=== PATIENT | male | born 1930 | race Two or more races ===

== ENCOUNTER 2018-09-03 15:48 | Inpatient (IN) | payer MEDICARE, MEDICAID ==
[~2018-09-03] VITALS: Ht 167.6 cm; Wt 68.5 kg
--- NOTE | 2018-09-03 18:08 | NUR ---
ms rn received a new admission from [facility], 87 year old male, awake,alert,oriented x4,not in any form of distress, respirations even and unlabored,no sob, denies pain at this time, all needs attended.
--- NOTE | 2018-09-03 18:09 | NUR ---
ms rn texted dr. espinal for orders.
[2018-09-03] MEDS ORDERED: ACETAMINOPHEN 325 MG TABLET PO PRN (18:30)
[2018-09-03] MEDS ORDERED: HYDROCODONE/APAP 5/325MG 1 EACH TABLET PO PRN (18:30)
[2018-09-03] MEDS ORDERED: MAGNESIUM HYDROXIDE 30 ML UDC PO PRN (18:30)
[2018-09-03] MEDS ORDERED: ZOLPIDEM TARTRATE 5 MG TABLET PO PRN (18:30)
[2018-09-03] MEDS ORDERED: ONDANSETRON HCL/PF 4 MG/2 ML VIAL IVP PRN (18:30)
[2018-09-03] MEDS ORDERED: Z GUARD REMEDY 2 OZ OINT TP PRN (18:30)
[2018-09-03] MEDS ORDERED: MAG HYDROX/AL HYDROX/SIMETH 30 ML UDC PO PRN (18:30)
--- NOTE | 2018-09-03 19:30 | NUR ---
RECEIVED PATIENT IN BED AWAKE. AO X 3, ABLE TO MAKE NEEDS KNOWN. NO ACUTE DISTRESS NOTED. DENIES ANY PAIN AT THIS TIME. IV SITE PATENT, INTACT; FLUSHED. SAFETY REMINDERS GIVEN. ON LOW BED WITH BILATERAL UPPER SIDE RAILS UP. CALL ENGLE WITHIN EASY REACH. WILL CONTINUE TO MONITOR. SISTER AT BEDSIDE.
[2018-09-03 20:00] VITALS: BP 138/55
[2018-09-04] VITALS: BP 120/57
[2018-09-04 04:00] VITALS: BP 135/65
--- NOTE | 2018-09-04 06:30 | NUR ---
PATIENT ASLEEP, EASILY AROUSABLE. RESPIRATIONS EVEN. NO SIGNS OF PAIN NOTED. NEEDS ATTENDED. SAFETY PRECAUTIONS AND COMFORT MEASURES IN PLACE. WILL GIVE REPORT TO DAY SHIFT FOR CONTINUITY OF CARE.
--- NOTE | 2018-09-04 07:16 | NUR ---
RN OPENING NOTES RECEIVED PATIENT IN BED AWAKE AO X 4. NO SIGNS OF RESPIRATORY DISTRESS. DENIES SHORTNESS OF BREATH. DENIES ANY PAIN AT THIS TIME. IV SITE PATENT AND INTACT. SAFETY PRECAUTIONS IMPLEMENTED: BED LOW, BED LOCKED, SIDERAILS UP X2, CALL LIGHT WITHIN REACH. WILL CONTINUE TO MONITOR.
[2018-09-04 08:00] VITALS: BP 160/67
[2018-09-04 08:07] LABS: BASOPHILS % (AUTO) 0.5 % (0.0-2.0); EOSINOPHILS % (AUTO) 3.5 % (0.0-6.0); HEMATOCRIT 38 % (39-51); HEMOGLOBIN 12.8 g/dL (13.5-17.5); LYMPHOCYTES # (AUTO) 1.1 /CMM (0.8-4.8); LYMPHOCYTES % (AUTO) 22.5 % (20.0-44.0); MEAN CORPUSCULAR HGB CONC 34 g/dl (31.0-36.0); MEAN CORPUSCULAR VOLUME 94 fL (80-96); MONOCYTES # (AUTO) 0.5 /CMM (0.1-1.30); MONOCYTES % (AUTO) 10.4 % (2.0-12.0); NEUTROPHILS # (AUTO) 3.1 /CMM (1.8-8.9); NEUTROPHILS % (AUTO) 63.1 % (43.0-81.0); PLATELET COUNT (AUTO) 268 /CMM (150-450); WHITE BLOOD COUNT (AUTO) 4.9 K/uL (4.3-11.0)
[2018-09-04] MEDS ORDERED: AMLO5TAB4 PO (08:15)
[2018-09-04] MEDS ORDERED: ENAL20TA PO (08:18)
[2018-09-04 08:29] LABS: CALCIUM, SERUM 9.3 mg/dL (8.5-10.1); CARBON DIOXIDE 26 mmol/L (21-32); CHLORIDE 101 mmol/L (98-107); GLUCOSE 98 mg/dL (74-106); MAGNESIUM 2.1 mg/dL (1.8-2.4); PHOSPHORUS 3.6 mg/dL (2.5-4.9); POTASSIUM 3.9 mmol/L (3.5-5.1); SODIUM SERUM 137 mmol/L (136-145); UREA NITROGEN, BLOOD 17 mg/dL (7-18)
[2018-09-04 08:32] LABS: CHOLESTEROL 182 mg/dL (<200); HDL CHOLESTEROL 56 mg/dL (40-60); LDL 115 mg/dL (0-99); THYROID STIMULATING HORMONE 1.286 uIU/mL (0.358-3.74); TRIGLYCERIDES 123 mg/dL (30-150)
[2018-09-04] MEDS: AMLODIPINE BESYLATE 5 MG TABLET PO SCH (09:12)
[2018-09-04] MEDS: ENALAPRIL MALEATE (10 MG) 10 MG TABLET PO SCH (09:13)
[2018-09-04 09:17] LABS: ALANINE AMINOTRANSFERASE 25 U/L (12-78); ALBUMIN 3.8 g/dL (3.4-5.0); ALKALINE PHOSPHATASE 60 U/L (46-116); ASPARTATE AMINOTRANSFERASE 14 U/L (15-37); BILIRUBIN,DIRECT 0.1 mg/dL (0.0-0.2); BILIRUBIN,TOTAL 0.5 mg/dL (0.2-1.0); TOTAL PROTEIN, SERUM 7.5 g/dL (6.4-8.2)
--- NOTE | 2018-09-04 09:38 | NUR ---
RN NOTES SINUS RHYTHM 68 AT THIS TIME.
[2018-09-04 16:00] VITALS: BP 125/57
--- NOTE | 2018-09-04 18:50 | NUR ---
RN CLOSING NOTES PATIENT IS RESTING COMFORTABLY IN BED. NO SIGNS OF RESPIRATORY DISTRESS. DENIES SHORTNESS OF BREATH. DENIES PAIN AT THIS TIME. ALL NEEDS MET AT THIS TIME. ALL MEDICATIONS GIVEN. SR 97 AT THIS TIME. SAFETY PRECAUTIONS IMPLEMENTED: BED LOW, BED LOCKED, SIDERAILS UP X2, CALL LIGHT WITHIN REACH. WILL ENDORSE TO PM SHIFT.
--- NOTE | 2018-09-04 19:30 | NUR ---
RECEIVED PATIENT SITTING UP IN BED AWAKE. AO X 3, ABLE TO MAKE NEEDS KNOWN. NO ACUTE DISTRESS NOTED. DENIES ANY PAIN AT THIS TIME. IV SITE PATENT, INTACT; FLUSHED. SAFETY REMINDERS GIVEN. ON LOW BED WITH BILATERAL UPPER SIDE RAILS UP. CALL ENGLE WITHIN EASY REACH. WILL CONTINUE TO MONITOR. SISTER AT BEDSIDE.
[2018-09-04 20:00] VITALS: BP_SYST 132; BP_SYST 143; BP_SYST 148; BP_DIAS 66; BP_DIAS 70; BP_DIAS 80
[2018-09-05] VITALS: BP 133/51
[2018-09-05 04:00] VITALS: BP 135/66
[2018-09-05 06:39] LABS: BASOPHILS % (AUTO) 0.3 % (0.0-2.0); EOSINOPHILS % (AUTO) 3.7 % (0.0-6.0); HEMATOCRIT 37 % (39-51); HEMOGLOBIN 12.5 g/dL (13.5-17.5); LYMPHOCYTES % (AUTO) 19.9 % (20.0-44.0); MEAN CORPUSCULAR HGB CONC 34 g/dl (31.0-36.0); MEAN CORPUSCULAR VOLUME 94 fL (80-96); MONOCYTES # (AUTO) 0.5 /CMM (0.1-1.30); MONOCYTES % (AUTO) 9.9 % (2.0-12.0); NEUTROPHILS # (AUTO) 3.3 /CMM (1.8-8.9); NEUTROPHILS % (AUTO) 66.2 % (43.0-81.0); PLATELET COUNT (AUTO) 264 /CMM (150-450); RED BLOOD CELL COUNT(AUTO) 3.94 MIL/uL (4.5-6.0)
[2018-09-05 06:52] LABS: ALANINE AMINOTRANSFERASE 23 U/L (12-78); ALBUMIN 3.5 g/dL (3.4-5.0); ALKALINE PHOSPHATASE 56 U/L (46-116); ASPARTATE AMINOTRANSFERASE 14 U/L (15-37); BILIRUBIN,TOTAL 0.5 mg/dL (0.2-1.0); CALCIUM, SERUM 8.8 mg/dL (8.5-10.1); CARBON DIOXIDE 27 mmol/L (21-32); CHLORIDE 103 mmol/L (98-107); CREATININE 1.1 mg/dL (0.6-1.3); GLUCOSE 100 mg/dL (74-106); MAGNESIUM 1.9 mg/dL (1.8-2.4); PHOSPHORUS 3.7 mg/dL (2.5-4.9); POTASSIUM 3.8 mmol/L (3.5-5.1); SODIUM SERUM 139 mmol/L (136-145); UREA NITROGEN, BLOOD 19 mg/dL (7-18)
--- NOTE | 2018-09-05 07:42 | NUR ---
RECEIVED PATIENT AWAKE IN BED. A/O X 3. NO SIGNS OF RESPIRATORY DISTRESS. DENIES SHORTNESS OF BREATH. DENIES ANY PAIN AT THIS TIME. NORMAL SINUS RHYTHM 72. SAFETY PRECAUTIONS IMPLEMENTED: BED LOW, SIDERAILS UP X2, BED LOCKED, CALL LIGHT WITHIN REACH. WILL CONTINUE TO MONITOR.
[2018-09-05 08:00] VITALS: BP 162/73
[2018-09-05 08:07] VITALS: BP 162/73
[2018-09-05] MEDS: ENALAPRIL MALEATE (10 MG) 10 MG TABLET PO SCH (08:07)
[2018-09-05] MEDS: AMLODIPINE BESYLATE 5 MG TABLET PO SCH (08:07)
[2018-09-05] MEDS ORDERED: ATOR20TA PO (08:11)
--- NOTE | 2018-09-05 11:09 | NUR ---
PATIENT DISCHARGED TO HOME. PATIENT DISCHARGED IN STABLE CONDITION.
== END 2018-09-05 11:15 | disposition home or self-care (01) | DRG 641 ==
LOC: TELE 17:18 → MED 09-05 08:10
PROVIDERS: ADMIT Student in an Organized Health Care Education/Training Program; ATTEND Student in an Organized Health Care Education/Training Program
DX: E86.0 Dehydration (principal); E87.1 Hypo-osmolality and hyponatremia; I10 Essential (primary) hypertension; Z98.890 Other specified postprocedural states; R00.1 Bradycardia, unspecified; D64.9 Anemia, unspecified; I65.23 Occlusion and stenosis of bilateral carotid arteries; Z79.899 Other long term (current) drug therapy
CPT/HCPCS: 36415; 80048-TC; 80053-TC; 80061-TC; 80076-TC; 83735-TC; 84100-TC; 84443-TC; 84484-TC; 85025-TC; 87081-TC; 93307-TC; 93880-TC; G0378